=== PATIENT | male | born 1985 | race Caucasian/White ===

== ENCOUNTER 2021-11-10 20:02 | Emergency (ER) | payer BC, SELFPAY ==
--- NOTE | ~2021-11-10 | CT_ITS ---
EXAMINATION: CT abdomen pelvis wo con DATE: 11/10/2021 22:22 INDICATION: Hematuria. Low back pain. TECHNIQUE: Computed tomography (CT) of the abdomen and pelvis was performed without intravenous contr ast. Automated exposure control and iterative reconstruction technique were employed. Exam dose: 318 .75 mGy-cm total exam DLP. COMPARISON: None. 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 No infiltrate or consolidation in the lower l karin zones. Normal heart size. No pericardial or pleural effusion. The liver, gallbladder, spleen, pancreas and the bile and pancreatic ducts are unremarkable. Normal morphology of the adrenal glands. No renal mass lesion or urinary tract calculus or hydroureteronephrosis is evident on this limited no ncontrast examination. There is prostate enlargement and mild calcification. There is moderate thickening of the urinary padmini dder wall which may be due to some bladder outlet obstruction secondary to prostatomegaly. Normal caliber of the abdominal aorta. No intraperitoneal or retroperitoneal or pelvic mass lesion or adenopathy or ascites. Normal appendix; no evidence of appendicitis. There is minimal diverticulosis of the left colon. No e vidence of diverticulitis. No bowel obstruction, bowel wall thickening, pneumatosis or intraperitoneal free air. Very small fat-containing umbilical hernia. Included skeletal structures are unremarkable. IMPRESSION: Prostatomegaly Minimal colonic diverticulosis Normal appendix No urinary tract calculus or hydroureteronephrosis Reviewed, dictated and finalized at [facility]. Reviewed, dictated and finalized at [facility].
--- NOTE | ~2021-11-10 | XR_ITS ---
XR chest 2V DATE: 11/10/2021 22:58 INDICATION: Right lower chest pain, right low back pain with inspiration TECHNIQUE: PA and lateral views COMPARISON: 10/20/2017 PA and lateral chest FINDINGS: Bilateral hyperinflation. No pulmonary infiltrate or consolidation, pleural effusion or pul monary vascular congestion or pneumothorax. Normal heart size. No hilar or mediastinal enlargement. Included skeletal structures are unremarkable. IMPRESSION: Bilateral hyperinflation; no active cardiopulmonary disease Reviewed, dictated and finalized at [facility].
[2021-11-10 20:25] VITALS: BP 141/72; PULSE 91; RESP 16; TEMP 37.1; O2SAT 99
[2021-11-10 21:01] LABS: Add Urine Microscopic? YES; Appearance Urine Clear (Clear); Bilirubin Urine Negative (Negative); Blood Urine 1+ (Negative); Color Urine Straw (Yellow); Glucose Urine UA Negative (Negative); Ketones Urine Negative (Negative); Leukocyte Esterase Ur Negative LEU/UL (Negative); Mucus Urine Rare /lpf; Nitrate Urine Negative (Negative); Protein Urine Negative (Negative); RBC Urine 0-2 /hpf (0-2); Specific Grav Ur 1.008 (1.001-1.035); Urobilinogen Urine Negative mg/dL (<2.0); WBC Urine 0-3 /hpf
[2021-11-10 21:25] VITALS: O2SAT 100
[2021-11-10 21:26] VITALS: BP 141/79; PULSE 87; RESP 18; O2SAT 100
[2021-11-10 21:30] LABS: Basophils Absolute Auto 0.1 K/mm3 (0.0-0.1); Basophils Percent Auto 0.6 % (0.2-1.2); Eosinophils Absolute Auto 0.3 K/mm3 (0-0.3); Hematocrit 45.3 % (42.0-52.0); Hemoglobin 15.6 g/dL (14.0-18.0); Immature Granulocyte Absolute 0.04 K/mm3 (0.00-0.031); Immature Granulocyte Percent A 0.3 % (0-0.5); Lymphocytes Absolute Auto 2.71 K/mm3 (0.9-3.2); Lymphocytes Percent Auto 21.6 % (18.3-44.2); Mean Corpuscular HGB Conc 34.4 g/dl (32-36); Mean Corpuscular Hemoglobin 28.6 pg (26-34); Mean Platelet Volume 9.7 fl (7.4-10.4); Monocytes Absolute Auto 1.3 K/mm3 (0.1-0.6); Monocytes Percent Auto 10.1 % (2.6-8.5); Neutrophils Absolute Auto 8.2 K/mm3 (1.3-6.7); Neutrophils Percent Auto 65.4 % (45.5-73.1); Platelet Count Result 296 k/mm3 (150-375); Red Blood Count 5.46 M/mm3 (4.6-6.20); Red Cell Distribution Width 12.6 % (11.5-14.5); White Blood Count 12.6 K/mm3 (4.5-10.0)
--- NOTE | 2021-11-10 21:31 | ED.BACK ---
HPI - Back Pain/Injury General Chief Complaint: Back Pain/Injury <GLORIA Monteiro Last Filed: 11/11/21 03:24> Stated Complaint: flank pain <GLORIA Monteiro Last Filed: 11/11/21 03:24> Time Seen by Provider: 11/10/21 21:18 <GLORIA Monteiro Last Filed: 11/11/21 03:24> History of Present Illness HPI Narrative: 36-year-old male here for evaluation of right low back pain for the past 2 days. He states the pain is sharp, intermittent in nature, and worse with certain positions and deep breaths. The pain is present in his right flank but occasionally moves to the front under his right ribs. His attempted to crack his back without relief of his pain, but denies any other interventions. Denies weakness, dysuria, blood noted in his urine, fevers, chills, chest pain, shortness of breath, cough, nausea, vomiting, saddle anesthesia, incontinence or retention of his bowel or bladder. <GLORIA Monteiro Last Filed: 11/11/21 03:24> Related Data Allergies/Adverse Reactions: Allergies Allergy/AdvReac Type Severity Reaction Status Date / Time No Known Allergies Allergy Verified 11/10/21 21:29 <GLORIA Monteiro Last Filed: 11/11/21 03:24> Review of Systems Review of Systems: Gen: Denies fevers or chills Eyes: Denies eye pain or visual change ENT: Denies congestion Respiratory: Denies shortness of breath or cough CV: Denies chest pain or palpitations GI: Denies abdominal pain nausea, emesis or diarrhea denies burning, urgency, frequency or hematuria Musculoskeletal: Reports right low back pain. Neuro: Denies numbness, tingling, weakness or focal weakness Skin: Denies rash Except as documented, all other systems reviewed and negative <GLORIA Monteiro Last Filed: 11/11/21 03:24> All systems reviewed & are unremarkable except as noted in HPI and below <GLORIA Monteiro Last Filed: 11/11/21 03:24> Exam Narrative: APPEARANCE: Well appearing, no pain in distress, well-nourished. Head: normocephalic and atraumatic. EYES: PERRLA/EOMI, conjunctivae clear NOSE: No nasal drainage EARS: External ear normal in appearance THROAT: Oropharynx is clear. Mucous membranes are moist. NECK: Supple. No adenopathy, no masses. RESPIRATORY: Airway patent, respirations nonlabored. Clear to auscultation bilaterally, no rales, rhonchi, wheezing. CARDIOVASCULAR: Regular rate and rhythm without murmurs, rubs, or gallops. ABDOMINAL: Normoactive bowel sounds. Soft, nontender, nondistended. No rebound tenderness or guarding. : No blood noted in rectal vault. Prostate nontender. MUSCULOSKELETAL: No midline tenderness along C, T or L-spine. No paraspinal muscle tenderness or spasms palpated. No CVA tenderness. Extremities are warm and well-perfused. Moves all extremities well. No edema. NEURO: Normal speech. No focal neurologic deficits. SKIN: Skin is warm and dry. No rashes. PSYCHIATRIC: Normal affect/mood. <Christal Queen PA-C - Last Filed: 11/11/21 03:24> Course SEWER PIPE CLEANER/PA Physician Supervision I did not see this patient but the care plan was discussed with me, labs and imaging reviewed. I agree with the documentation as above <Sabino Souza MD - Last Filed: 11/11/21 08:22> Vital Signs Vital signs: Vital Signs Temperature 37.1 C 11/10/21 20:25 Pulse Rate 91 11/10/21 20:25 Respiratory Rate 16 11/10/21 20:25 Blood Pressure 141/72 H 11/10/21 20:25 Pulse Oximetry 99 11/10/21 20:25 Temperature 37.1 C 11/10/21 20:25 Pulse Rate 78 11/11/21 00:40 Respiratory Rate 16 11/11/21 00:40 Blood Pressure 111/71 11/10/21 23:22 Pulse Oximetry 98 11/11/21 00:40 <Christal Queen PA-C - Last Filed: 11/11/21 03:24> Vital Signs Temperature 37.1 C 11/10/21 20:25 Pulse Rate 91 11/10/21 20:25 Respiratory Rate 16 11/10/21 20:25 Blood Pressure 141/72 H 11/10/21 20:25 Pu
[2021-11-10] MEDS: KETOROLAC 15 MG/ML VIAL (*BKC) IV PUSH (21:37)
[2021-11-10 21:42] LABS: Alanine Aminotransferase 22 U/L (4-50); Albumin Level 4.9 g/dL (3.5-5.1); Alkaline Phosphatase 66 U/L (38-126); Anion Gap 10 mmol/L (8-16); Aspartate Amino Transferase 32 U/L (17-59); Bilirubin,Total 0.3 mg/dL (0.2-1.3); Blood Urea Nitrogen 11 mg/dL (9-20); Calcium 8.8 mg/dL (8.4-10.2); Carbon Dioxide 30 mmol/L (22-30); Chloride 99 mmol/L (98-107); Estimated CRCL calculation 100 ml/min; Estimated Glomerular Filt Rate > 60; Glucose 101 mg/dL (65-110); Potassium 3.7 mmol/L (3.4-5.0); Sodium 139 mmol/L (137-145)
[2021-11-10 23:22] VITALS: BP 111/71; PULSE 89; RESP 16; O2SAT 98
[2021-11-11 00:40] VITALS: PULSE 78; RESP 16; O2SAT 98
== END 2021-11-11 00:40 | disposition home or self-care (01) ==
PROVIDERS: Emergency Provider Emergency Medicine; PCP Family Medicine Sports Medicine
DX: N30.90 Cystitis, unspecified without hematuria (principal)
CPT/HCPCS: 36415; 71046; 74176; 80053; 81001; 85025; 96374; 99284; J1885

== ENCOUNTER 2024-08-31 10:12 | Emergency (ER) | payer BC, SELFPAY ==
--- NOTE | 2024-08-31 10:15 | ED_ITS ---
HPI - URI/Sore Throat General Chief Complaint: Upper Respiratory Infection Stated Complaint: Flu Symptoms Source: patient and RN notes reviewed Mode of arrival: ambulatory Limitations: no limitations History of Present Illness HPI Narrative: Patient is a 38-year-old male who presents to the [facility] with multiple complaints. Patient reports sore throat and generalized body aches for the last couple days. He also reports intermittent nausea. Denies abdominal pain or vomiting. Patient states that he has had an infrequent nonproductive cough. Denies chest pain or shortness of breath. He reports fevers yesterday. He is currently afebrile. Respirations are unlabored. States that his daughter recently tested positive for influenza. Related Data Allergies Allergy/AdvReac Type Severity Reaction Status Date / Time No Known Allergies Allergy Verified 08/31/24 10:31 Review of Systems Review of Systems: CONSTITUTIONAL: Reports fever, chills, and sweats. EYES: Denies visual changes, redness, or discharge. ENT: Denies otalgia but reports sore throat. CARDIOVASCULAR: Denies chest pain, palpitations, or edema. RESPIRATORY: Reports cough but denies dyspnea. GASTROINTESTINAL: Denies abdominal pain, nausea, vomiting, or diarrhea. GENITOURINARY: Denies dysuria or hematuria. SKIN: Denies rash or itching. MUSCULOSKELETAL: Denies back pain, joint pain, but reports myalgia. NEUROLOGIC: Reports headache but denies numbness or weakness. Pertinent positives per HPI. PMFSH Comments At the time of my signature, I reviewed and agree with the nursing past medical, surgical, social, and family history. There is no relevant family history pertinent to the patient complaint. Exam Narrative: GENERAL: This is a well-nourished, well-developed patient, in no apparent distress. HEAD: normocephalic, atraumatic. EYES: Sclera clear/white. Vision is grossly intact. EARS: External ears normal, auditory canals clear and without drainage, TMs normal without perforation. Hearing grossly intact. NOSE: External nose normal with no obvious nasal discharge, nares without redness, no rhinorrhea. THROAT: Mucous membranes moist, oropharyngeal erythema without exudate or ulceration. NECK: Neck supple, non-tender without lymphadenopathy, masses or thyromegaly. CARDIOVASCULAR: Regular rate and rhythm without murmurs, gallops, or rubs. RESPIRATORY: Clear to auscultation. Breath sounds equal bilaterally. No wheezes, rales, or rhonchi. GASTROINTESTINAL: Abdomen soft, non-tender, nondistended. Bowel sounds are active. No hepato-splenomegaly, or palpable masses. No guarding. SKIN: warm, intact with no suspicious lesions or rash, good texture and turgor. NEURO: awake, alert, and oriented to person, place and time. There were no obvious focal neurologic abnormalities. Course Course Level of Care: Express Care Visit Vital Signs Vital signs: Vital Signs Temperature 98.7 F 08/31/24 10:30 Pulse Rate 103 H 08/31/24 10:30 Respiratory Rate 16 08/31/24 10:30 Blood Pressure 120/67 08/31/24 10:30 Pulse Oximetry 98 08/31/24 10:30 Temperature 98.7 F 08/31/24 10:30 Pulse Rate 103 H 08/31/24 10:30 Respiratory Rate 16 08/31/24 10:30 Blood Pressure 120/67 08/31/24 10:30 Pulse Oximetry 98 08/31/24 10:30 Reviewed MDM - URI/Sore Throat MDM Narrative Medical decision making narrative: Viral illness may last between 7-21 days; antibiotics do not cure viral illness and are NOT recommended at this time. Also, recommend symptomatic treatment includes: rest, fluids, and increase humidity of the air at home. Recommend Acetaminophen as directed on the bottle to reduce fever, pain, headache. Please schedule a follow-up visit with your personal physician for further evaluation and treatment within 3-5days. If your symptoms persist, change or worsen significantly before you can contact your personal physician then please, without delay, go to the emergency department for further evaluation. Differential Diagnosis Differential diagnosis: Likely upper respiratory infection, sinusitis, viral infection, influenza and other (covid, strep) Lab Data Attestation: I reviewed the patient's lab results. Critical Care Time Critical Care Time Critical Care Time: No Discharge Plan Discharge Clinical Impression: Viral illness Patient Disposition: Home, Self-Care Condition: Stable Instructions: Viral Syndrome (ED) Additional Instructions: Viral illness may last between 7-21 days; antibiotics do not cure viral illness and are NOT recommended at this time. Also, recommend symptomatic treatment includes: rest, fluids, and increase humidity of the air at home. Recommend Acetaminophen as directed on the bottle to reduce fever, pain, headache. Please schedule a follow-up visit with your personal physician for further evaluation and treatment within 3-5days. If your symptoms persist, change or worsen significantly before you can contact your personal physician then please, without delay, go to the emergency department for further evaluation. Patient Language: Zimbabwean Follow-up/Referrals: PHYSICIAN,CURTAIN STRETCHER [Primary Care Provider] - Stand Alone Forms: Work/School Release IP Time of Disposition: 10:48
[2024-08-31 10:30] VITALS: BP 120/67; PULSE 103; RESP 16; TEMP 37.1; O2SAT 98
[2024-08-31 10:48] LABS: EDCOVIDSCREEN Negative (Negative); EDINFLUASCREEN Negative (Negative); EDINFLUBSCREEN Negative (Negative); EDSTREPNEGPOS1 Negative (Negative)
== END 2024-08-31 10:58 | disposition home or self-care (01) ==
PROVIDERS: Emergency Provider Nurse Practitioner
DX: B34.9 Viral infection, unspecified (principal); Z20.822 Contact with and (suspected) exposure to COVID-19
CPT/HCPCS: 87081; 87426; 87804; 87880; 99213; G0463

== ENCOUNTER 2024-10-23 10:08 | Emergency (ER) | payer BC, SELFPAY ==
--- OUTSIDE RECORDS SUMMARY | 2024-10-23 10:10 | XMS_ITS | Clinical Summary ---
Author Organization [facility] Address [address] [place] [address] Care Team Providers Care Java Lead Developer Name Role Phone Michael Arreola MD Primary Care Provider [phone] Source Comments [facility],non-owned Affiliates and Associated Physician Practices is amultiple site organization consisting of ambulatory clinics and hospital sitesin [place], [place], [place] and [place]. This disclosure is being madepursuant to the Care Everywhere program and may not contain all information available regarding this patient. Last updated 18.[facility] Allergies Active Allergy Reactions Criticality Noted Date Comments Sesame Oil Unknown 11/24/2020 Trouble swallowing, pt states not swelling Wheat Bran Swelling 08/31/2019 Medications * Be aware that medications may not be up to date on this document. Alwaysverify current medications with the patient. 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 Gender Identity Not on file Sexual Orientation Not on file Last Filed Vital Signs Vital Sign Reading Time Taken Comments Blood Pressure 100/68 11/24/2020 9:39 AM CDT Pulse 77 11/24/2020 9:39 AM CDT Temperature 36.9 C (98.5 F) 11/24/2020 9:39 AM CDT Respiratory Rate 16 11/24/2020 9:39 AM CDT Oxygen Saturation 98% 11/24/2020 9:39 AM CDT Inhaled Oxygen Concentration - - Weight 63.5 kg (140 lb) 11/24/2020 9:39 AM CDT Height 170.2 cm (5' 7 ) 11/24/2020 9:39 AM CDT Body Mass Index 21.93 11/24/2020 9:39 AM CDT Plan of Treatment Health Maintenance Due Date Last Done Comments HIV SCREENING 2000 HEPATITIS C SCREENING 10/18/2003 DTAP/TDAP/TD VACCINES (1 - Tdap) 2004 HEPATITIS B VACCINE (1 of 3 - 19+ 3-dose series) 2004 COVID-19 VACCINE (1 - 2023-2 5 season) 2024 DEPRESSION SCREENING 07/14/2024 INFLUENZA VACCINE (Season Ended) 2025 ZOSTER VACCINE (1 of 2) 10/23/2035 HIB VACCINE Aged Out No longer eligi ble based on patient's age to complete this topic HPV VACCINE Aged Out No longer eligi ble based on patient's age to complete this topic MENINGOCOCCAL (Group B) VACC INE SHARED DECISION-MAKING Aged Out No longer eligibl e based on patient's age to complete this topic MENINGOCOCCAL GROUPS A/C/Y/W VACCINE Aged Out No longer eligible b ased on patient's age to complete this topic PNEUMOCOCCAL VACCINE Aged Out No long er eligible based on patient's age to complete this topic [place] [address] [facility] Care Teams Java Lead Developer Relationship Specialty Start Date End Date Michael Arreola MD [facility] [place] [address] PCP - General Family Medicine 08/26/16
[2024-10-23 10:12] VITALS: BP 124/72; PULSE 86; RESP 18; TEMP 36.5; O2SAT 99
--- NOTE | 2024-10-23 10:39 | ED_ITS ---
HPI - General Adult General Chief complaint: Dizziness Stated complaint: DIZZINESS X2D Time Seen by Provider: 10/23/24 10:23 History of Present Illness HPI narrative: This is a 39-year-old male presenting to the ED with a chief complaint of vertigo. Over last 2 days the patient has 2 episodic episodes of vertigo. They only occur when he wakes up in the morning. Says he wakes when he takes a large stretch he becomes vertiginous. The symptoms then quickly resolved. They do not recur throughout the day. Patient had his birthday last night was drinking a fair amount of alcohol. He then had his vertigo recurred this morning at this time he is currently asymptomatic. He denies double vision, difficulty speaking swallowing or loss of coordination. No neurologic deficits. No loss of hearing or ear pain. Related Data Allergies Allergy/AdvReac Type Severity Reaction Status Date / Time gluten Allergy Severe Difficulty Verified 10/23/24 10:17 Swallowing Exam Narrative: APPEARANCE: No apparent distress. Head: atraumatic. TMs normal EYES: EOMI, NOSE: Atraumatic NECK: Trachea midline RESPIRATORY: No increased rate of breathing CARDIOVASCULAR: RRR, ABDOMINAL: Non-distended MUSCULOSKELETAl: No obvious deformities NEURO: Alert. Cranial nerves 2-12 grossly intact. Sensation light touch, motor function cerebellar function intact for 4 extremities. Gait exam was normal. Reserve-Hallpike negative, no nystagmus arrest SKIN:: Warm, dry. Normal color PSYCHIATRIC: Normal affect Course Vital Signs Vital signs: Vital Signs Temperature 97.7 F 10/23/24 10:12 Pulse Rate 86 10/23/24 10:12 Respiratory Rate 18 10/23/24 10:12 Blood Pressure 124/72 10/23/24 10:12 Pulse Oximetry 99 10/23/24 10:12 Oxygen Delivery Room Air 10/23/24 10:12 Temperature 97.7 F 10/23/24 10:12 Pulse Rate 86 10/23/24 10:12 Respiratory Rate 18 10/23/24 10:12 Blood Pressure 124/72 10/23/24 10:12 Pulse Oximetry 99 10/23/24 10:12 Oxygen Delivery Room Air 10/23/24 10:12 Medical Decision Making MDM Narrative Medical decision making narrative: 39-year-old male presenting with triggerable episodic vertigo. No neurologic findings. He is able to ambulate without difficulty He is currently asymptomatic. Ollie-Hallpike was negative. No concern for central cause of vertigo. Patient will be treated with meclizine and scopolamine. patient given primary care follow-up return precautions. Differential diagnosis: Peripheral vertigo, central vertigo, BPPV, vestibular neuritis, cva, Dehydration/etoh poisoning. Vital Signs Vital Signs: Vital Signs Temperature 97.7 F 10/23/24 10:12 Pulse Rate 86 10/23/24 10:12 Respiratory Rate 18 10/23/24 10:12 Blood Pressure 124/72 10/23/24 10:12 Pulse Oximetry 99 10/23/24 10:12 Oxygen Delivery Room Air 10/23/24 10:12 Temperature 97.7 F 10/23/24 10:12 Pulse Rate 86 10/23/24 10:12 Respiratory Rate 18 10/23/24 10:12 Blood Pressure 124/72 10/23/24 10:12 Pulse Oximetry 99 10/23/24 10:12 Oxygen Delivery Room Air 10/23/24 10:12 Discharge Plan Discharge Clinical Impression: Vertigo Patient Disposition: Home Condition: Stable Instructions: Antibiotic Form, Vertigo (ED) Additional Instructions: Please use meclizine and scopolamine as needed for vertigo. If your symptoms become constant, there is associated with double vision, difficulty swallowing slurred speech or inability to walk please return to the emergency department immediately for re-evaluation. Patient Language: Guamanian Prescriptions: New meclizine 25 mg tablet 25 mg PO TID Qty: 30 0RF scopolamine base 1 mg over 3 days patch 3 day 1 patch transdermal Q3D PRN (Reason: vertigo) Qty: 4 0RF Follow-up/Referrals: Elba,Michael Powell MD [Primary Care Provider] - 1 Week (episodic vertigo)
[2024-10-23] MEDS: MECLIZINE HCL 25 MG TABLET PO (10:43)
--- OUTSIDE RECORDS SUMMARY | 2024-10-23 10:43 | XMS_ITS | Continuity of Care Document ---
Author Organization [facility] Address [address] [place] [address] [place] [address] Phone Care Team Providers Care Tire Molder Name Role Phone Michael Oliveira MD Unavailable Unavailable Allergies, Adverse Reactions, Alerts Substance Reaction Status Criticality No Known Allergies Active No Inform ation Procedures Procedure Date PREV VISIT, [facility], AGE 18-39 OFFICE/OUTPATIENT VISIT, [facility] Advance Directives Directive Yes / No Effective Date File Name No Information Encounters Encounter Description Practice Location Reason(s) For Visit Diagnoses Date Provider Providers Copied on Encounter PREV VISIT, [facility], AGE 18-39 [facility], [address], [place], [id number], [place] tel:[phone] [facility] physical (chief complaint) Encounter for general adult medical exam w abnormal findingsDysphagiaVi ral infection Tee Rodriguez. [address], [place], [id number] , [place]. tel:[phone] Family History Family Member Type Diagnosis Age At Onset Father Problem prostate CA 60 Mother Problem Hypertension Father Problem gisele Brother Problem Alive and well Payers Payer name Insurance type Covered alliance party ID Authoriza tion(s) No Information Social History Type Description Quantity Date Captured Comments Alcohol Use Details beer & wine Caffeine Use Details Unknown Tobacco Use Status Current non-smoker Smoking Status Never smoker Non-Smoking Tobacco Use Details : No Details Available : No Details Available Sex Male Vital Signs Date / Time: Height Weight BMI Pulse Rate Blood Pressure Temperature Respiratory Rate Body Surface Area Head Circumference BMI percentile Pulse Ox Inhaled Ox 10:21 AM 67.00 in 144.20 lbs 22.5 8 kg/m eter (2) 82 /min 112/72 mm[Hg] 97.9 F 16 /min Chief Complaint And Reason For Visit From encounter dated '10/02/2020 10:15'. physical (chief complaint). Description: Pt needs annual physical .Pt was diagnosed with COVID approximately 10 days ago pt only feels slight headache without any fever sob, cough. Pt did have loss of smell which he is fully recovered .Pt denies any headache anymore Pt currently only feels slightly fatigue without any other symptoms. Pt also has history of dysphagia 5 years ago Pt denies any GERDor abd pain or nausea, vomiting Pt had EGD done 5 years ago which showed ? eosinophilic esophagitisand he was told that he is allergic to some wheat without gluten allergy. Pt denies any GERD ,dysphagia or any sore throat for over 4 years now. Pt denies any other complaints Plan Of Treatment Date Type Action Status No Information History Of Present Illness Encounter Date Complaint History Of Prese nt Illness physical Pt needs annual physical .Pt was diagnosed with COVID approximately 10 days ago pt only feels slight headache without any fever sob, cough. Pt did have loss of smell which he is fully recovered .Pt denies any headache anymore Pt currently only feels slightly fatigue without any other symptoms. Pt also has history of dysphagia 5 years ago Pt denies any GERD or abd pain or nausea, vomiting Pt had EGD done 5 years ago which showed ? eosinophilic esophagitis and he was told that he is allergic to some wheat without gluten allergy. Pt denies any GERD ,dysphagia or any sore throat for over 4 years now. Pt denies any other complaints Instructions Date Instruction Additional Infor mation No Information Assessments Type Assessment Date assessment Encounter for general adult medi thad exam w abnormal findings assessment Dysphagia assessment Viral infection Mental Status Date Cognitive Assessment Orientation - Jones ed to time, place, person, situation.
--- OUTSIDE RECORDS SUMMARY | 2024-10-23 10:43 | XMS_ITS | Clinical Summary ---
Author Organization [facility] Address [address] [place] [address] Care Team Providers Care Poultry Feed Supervisor Name Role Phone Michael Arreola MD Primary Care Provider [phone] Source Comments [facility] [employer],non-owned Affiliates and Associated Physician Practices is amultiple site organization consisting of ambulatory clinics and hospital sitesin [place], [place], [place] and [place]. This disclosure is being madepursuant to the Care Everywhere program and may not contain all information available regarding this patient. 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
--- OUTSIDE RECORDS SUMMARY | 2024-10-23 10:43 | XMS_ITS | Continuity of Care Document ---
Author Organization [facility] Address [address] [place] [address] Phone Care Team Providers Care Assistant Professor Of Business Name Role Phone Katerine Pickett MD Unavailable Unavailable Advance Directives Directive Yes / No Effective Date File Name No Information Encounters Encounter Description Practice Location Reason(s) For Visit Diagnoses Date Provider Providers Copied on Encounter [facility], [address], [place], [place], [id number], tel:[phone] [place] No Information Nieves Garcias. [address] [place] [address], [id number], . tel:[phone] Family History Family Member Type Diagnosis Age At Onset No Information Payers Payer name Insurance type Covered constitution party ID Authoriza tion(s) No Information Social [...]
[2024-10-23] MEDS: SCOPOLAMINE 1 MG PATCH 1 PATCH TRANSDERM (10:44)
[2024-10-23 10:46] VITALS: BP 115/78; PULSE 80; RESP 16; O2SAT 99
== END 2024-10-23 10:49 | disposition home or self-care (01) ==
PROVIDERS: Emergency Provider Emergency Medicine; PCP Family Medicine
DX: R42 Dizziness and giddiness (principal)
CPT/HCPCS: 99283; A9270

== ENCOUNTER 2025-04-15 14:47 | Outpatient (CLI) | payer BC, SELFPAY ==
--- OUTSIDE RECORDS SUMMARY | 2013-07-16 16:01 | XMS_ITS | Continuity of Care Document ---
[facility] Organization [facility] Address [address] [place] [address] Phone Care Team Providers Care Marine Engineering Consultant Name Role Phone Katerine Pickett MD Unavailable Unavailable Advance Directives Directive Yes / No Effective Date File Name No Information Encounters Encounter Description Practice Location Reason(s) For Visit Diagnoses Date Provider Providers Copied on Encounter [facility], [address], [place], [place], [id number], tel:[phone] [place] No Information Nieves Garcias. [address] [place] [address], [id number], . tel:[phone] Family History Family Member Type Diagnosis Age At Onset No Information Payers Payer name Insurance type Covered democrat ID Authoriza tion(s) No Information Social History Type Description Quantity Date Captured Comments Sex Male Smoking Status No Information Chief Complaint And Reason For Visit No Information Reason For Referral Reason For Referral No Information History Of Present Illness Encounter Date Complaint History Of Prese nt Illness No Information Functional Status Date Functional Assessmen t No Information Instructions Date Instruction Additional Infor mation No Information Assessments Type Assessment Date No Information Patient Care Teams Name Effective Dates (start - stop) Status Members No Information
--- NOTE | ~2025-04-15 | CT_ITS ---
EXAMINATION: CT soft tissue neck w con DATE: 04/15/2025 15:13 INDICATION: Right neck pain. TECHNIQUE: Computed tomography (CT) of the neck was performed with 75 mL Omnipaque-350 intravenous contrast. Automated exposure control and iterative reconstruction technique were employed. The dose-length product was 576.12 mGy-cm. COMPARISON: None FINDINGS: There are no pathologically enlarged lymph nodes. There is 0% stenosis of the proximal internal carotid arteries relative to normal distal artery lumen diameters. The major salivary glands are normal. The orbits are normal. There is a mucous retention cyst in right maxillary sinus. There is mild mucosal thickening in left sphenoid sinus. The mastoid air cells are normal. There is mild cervical spondylosis. IMPRESSION: 1. No specific etiology for the patient's symptoms. Reviewed, dictated and finalized at location E.
== END 2025-04-15 14:48 | disposition home or self-care (01) ==
PROVIDERS: PCP Emergency Medicine; Visit Provider Emergency Medicine
DX: R59.0 Localized enlarged lymph nodes (principal)
CPT/HCPCS: 70491; Q9967

== ENCOUNTER 2025-05-09 02:05 | Day surgery (SDC) | payer BC, SELFPAY ==
[2025-04-28 10:34] VITALS: BMI 24.3
--- OUTSIDE RECORDS SUMMARY | 2025-05-09 02:08 | XMS_ITS | Clinical Summary ---
Author Organization [facility] Address [address] [place] [address] Care Team Providers Care Feather Shaper Name Role Phone Michael Arreola MD Primary Care Provider [phone] Source Comments [facility] [employer],non-owned Affiliates and Associated Physician Practices is amultiple site organization consisting of ambulatory clinics and hospital sitesin [place], [place], [place] and [place]. This disclosure is being madepursuant to the Care Everywhere program and may not contain all information available regarding this patient. 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 Gender Identity Not on file Sexual Orientation [...] 9:39 AM CDT Height 170.2 cm (5' 7) 11/24/2020 9:39 AM CDT Body Mass Index 21.93 11/24/2020 9:39 AM CDT Plan of Treatment Health Maintenance Due Date Last Done Comments HIV SCREENING 2000 HEPATITIS C SCREENING 10/18/2003 DTAP/TDAP/TD VACCINES (1 - Tdap) 2004 HEPATITIS B VACCINE (1 of 3 - 19+ 3-dose series) 2004 HPV VACCINE (1 - 3-dose SCDM series) 2012 DEPRESSION SCREENING 07/14/2024 COVID-19 VACCINE (1 - 2023-2 5 season) 2025 INFLUENZA VACCINE (#1) 2025 ZOSTER VACCINE (1 of 2) 10/23/2035 [...] to complete this topic [place] [address] [facility] Care Teams Feather Shaper Relationship Specialty Start Date End Date Michael Arreola MD [address] [place] [address] PCP - General Family Medicine 08/26/16
[2025-05-09 10:08] VITALS: BP 120/79; PULSE 73; RESP 20; TEMP 36.2; O2SAT 100; BMI 25.2
[2025-05-09] MEDS: LACTATED RINGERS 1,000 ML 150 ML IV CONT (10:46)
--- NOTE | 2025-05-09 11:12 | WPDANESEPPF ---
Anes - Initial Pre Proc Eval Procedure: Operation Date: 05/09/25 11:30 Proposed Procedures p Esophagogastroduodenoscopy EGD - Donnie Chaney MD Date/Time: 05/09/25 11:12 Surgeon: Donnie Chaney MD Pre Op Diagnosis: Dysphagia, unspecified Patient Data Age: 39 Gender: M Height: 1.7 m Weight: 73 kg Last Vital Signs Temp 36.2 C L 05/09/25 10:08 Pulse 73 05/09/25 10:08 Resp 20 05/09/25 10:08 BP 120/79 05/09/25 10:08 Pulse Ox 100 05/09/25 10:08 O2 Del Method Room Air 05/09/25 10:08 Allergies Allergy/AdvReac Type Severity Reaction Status Date / Time gluten Allergy Severe Difficulty Verified 05/09/25 10:14 Swallowing Home Medications ?Medication ?Instructions ?Recorded ?Confirmed ?Type omeprazole 40 mg capsule,delayed 40 mg PO DAILY 04/28/25 05/09/25 History release Patient hx anesthesia problems: none Family hx anesthesia problems: none Results Review: All pre-operative results and documents have been reviewed as part of the pre-operative evaluation. PENDING SALE TO [facility] Social History Social History Smoking status: Never smoker Anes - Eval Final PreProcedure Day of Procedure 05/09/25 11:12 Patient weight: normal Heart: regular rate and rhythm Lungs: clear to auscultation Airway: Mallampati scale class II Neurological: alert and oriented Last oral intake: >/= 8 hours ASA classification: II Emergent: no Anesthetic plan: proceed Anesthesia type and monitoring: general GIVS and standard monitoring Results Review: All pre-operative results and documents have been reviewed as part of the pre-operative evaluation. Informed Consent: The patient's anesthetic plan and its attendant risks and benefits were discussed with the patient/family/POA. Questions were solicited and answers provided to the satisfaction of the patient/family/POA.
--- NOTE | 2025-05-09 11:33 | PM.HPGS ---
History of Present Illness History of Present Illness Consent: Risks, benefits, and alternatives have been discussed and questions answered. Patient agrees to proceed with procedure. Chief complaint: Dysphagia, unspecified Narrative: Yonis Reese is a 39 year old male with intermittent dysphagia for 10 years, had EGD back then and was told that possible allergy, using omeprazole only as needed but never made a difference Review of Systems Review of Systems: All systems reviewed & are unremarkable except as noted in HPI and below PMFSH Past Medical History Medical History (Updated 05/09/25 @ 11:34 by Donnie Chaney MD) Dysphagia Social History Social History Smoking status: Never smoker Meds Home Medications and Allergies Home Medications ?Medication ?Instructions ?Recorded ?Confirmed ?Type omeprazole 40 mg capsule,delayed 40 mg PO DAILY 04/28/25 05/09/25 History release Allergies Allergy/AdvReac Type Severity Reaction Status Date / Time gluten Allergy Severe Difficulty Verified 05/09/25 10:14 Swallowing Vital Signs Vital Signs - 24 hr 05/09/25 10:08 Temperature 97.1 F L Pulse Rate 73 Respiratory Rate 20 Blood Pressure 120/79 Pulse Oximetry 100 Oxygen Delivery Room Air Exam Const: General: comfortable and no acute distress HENMT: Face/Nose/Sinus: Normal nares present Eyes: General: appearance normal, both eyes and all related structures Neck: Neck: no JVD Resp: Auscultation: clear to auscultation bilaterally Cardio: Rate: regular rate Rhythm: regular rhythm GI: Inspection: non-distended GI Palp: Yes Soft to palpation Skin: General skin exam: normal color Neuro: General: gait normal Speech: normal speech Extrem: General: normal to inspection Psych: Mental Status: mental status grossly normal Assessment and Plan Assessment and plan (1) Dysphagia: Code(s): R13.10 - Dysphagia, unspecified Status: Acute Assessment and Plan: egd with bx
--- NOTE | 2025-05-09 11:41 | S_PTH ---
PATIENT: Yonis Reese LOC: [facility] Schumacher#:[id number] AGE/SX: 39/M ROOM: RE05/09/[address]: Donnie Chaney MD : 1985 BED: DIS: 05/09/2025 SPEC #: [id number] RECD: 05/09/25 12:50 STATUS: KELSIE REPaolo #: [id number] EREN: 05/09/25 11:[address]: Donnie Chaney DEPT: [facility] Surgical RECD BY: Govind Angiln ENTERED: 05/09/25 12:52 SP TYPE: Surgical OTHR DR: Michael Oliveira MD Tissues: A - Gastric Biopsy B - Esophageal Biopsy C - Esophageal Biopsy Procedures: Hematoxylin and Eosin Stain Gross and Microscopic Level 4
[2025-05-09 11:47] VITALS: BP 98/62; PULSE 72; RESP 18; O2SAT 100
[2025-05-09 11:57] VITALS: BP 109/73; PULSE 70; RESP 21; O2SAT 99
[2025-05-09 12:07] VITALS: BP 115/78; PULSE 71; RESP 25; O2SAT 99
== END 2025-05-09 12:07 | disposition home or self-care (01) ==
PROVIDERS: PCP Emergency Medicine; Referring Provider Internal Medicine Gastroenterology; Visit Provider Internal Medicine Gastroenterology
PROC: 0DJ08ZZ Inspection of Upper Intestinal Tract, Via Natural or Artificial Opening Endoscopic (ICD-10-PCS; CPT 43239; principal; 2025-05-09 11:30)
DX: K21.00 Gastro-esophageal reflux disease with esophagitis, without bleeding (principal); K31.89 Other diseases of stomach and duodenum
CPT/HCPCS: 43239; 88305; J2003; J2704; J7120